=== PATIENT | female | born 1950 | race Caucasian/White ===

== ENCOUNTER → 2016-07-16 | Outpatient (CLI) | payer OTHER ==
[~2016-07-16] MED LIST: ADVIN25050 INH; ALBUAER INH; ATOR-14 PO; CLON1TAB3 PO; FLUT50SP14 NAE; FRRS300 PO; LCTX PO; OMEP40CA36 PO; OXYC-57 PO; RIVA1TAB PO; SERT100T PO
--- NOTE | 2016-07-16 14:43 | DIAGNOSTIC IMAGING REPORT ---
TWO VIEW CHEST CLINICAL HISTORY: COPD. FINDINGS: PA and lateral chest radiographs are compared to study dated 10/19/2011 and correlated with chest CT dated 10/17/2011. The cardiomediastinal silhouette is unremarkable. There is atherosclerotic calcification of the thoracic aorta. Emphysema and chronic interstitial thickening are similar to previous. There is asymmetric density at the right apex. No pleural effusion or pneumothorax is identified. The skeletal structures are osteopenic. The bony thorax appears intact. IMPRESSION: 1. Emphysema. 2. There is an asymmetric right apical opacity. Although this could represent pneumonia or scarring the location and appearance are not typical. Underlying mass lesion is not excluded. Follow-up with a chest CT is recommended for further assessment. Electronically signed by: Blake Crook M.D. 07/16/2016 2:42 PM Dictated Date/Time: 07/16/2016 2:40 PM
== END | disposition home or self-care (01) ==
LOC: C.RAD1850 14:31
PROVIDERS: ATTEND Internal Medicine Pulmonary Disease
DX: J44.9 Chronic obstructive pulmonary disease, unspecified (principal)

== ENCOUNTER → 2016-07-27 | Outpatient (CLI) | payer OTHER ==
[~2016-07-27] MED LIST changes: +OPTIRAY 320 IV PRN
--- NOTE | 2016-07-27 11:32 | DIAGNOSTIC IMAGING REPORT ---
CHEST CT WITH CONTRAST CT DOSE: 214.40 mGy.cm HISTORY: Abnormal chest x-ray R93.8 Abnormal chest [id number] TECHNIQUE: Multiaxial CT images of the chest were performed following the intravenous administration of contrast. COMPARISON: 10/17/2011. Chest series dated 07/16/2016 FINDINGS: Lungs currently are considerably improved in terms of aeration compared to the prior study. Interstitial changes on the prior study have essentially resolved. Progressive right and to lesser extent left apical fibrous appearing changes. A true masslike process is not appreciated. There is no evidence for any component of bony destructive change. Hilar and mediastinal regions show no significant adenopathy. Mild atherosclerotic change thoracic aorta. No evidence for aneurysm or dissection. Limited evaluation the upper abdomen shows moderate cortical thinning of the kidneys. Mild hepatic in homogeneity is present suggesting a component of fatty infiltration. IMPRESSION: 1. Increased right and to a lesser extent left apical density. 2. This is highly suggestive of a benign somewhat progressive fibrous or scar like change. 3. Neoplasm is considered unlikely given this appearance. 4. Considerable improvement in aeration of both hemithoraces compared to the prior CT study with no current evidence for focal infiltrate Electronically signed by: Holden Fine M.D. 07/27/2016 11:30 AM Dictated Date/Time: 07/27/2016 11:23 AM
== END | disposition home or self-care (01) ==
LOC: C.CTS 10:42
PROVIDERS: ATTEND Internal Medicine Pulmonary Disease
DX: R93.8 Abnormal findings on diagnostic imaging of other specified body structures (principal)

== ENCOUNTER 2017-06-02 11:15 | Inpatient (IN) | payer OTHER ==
[~2017-06-02] VITALS: Ht 154.9 cm; Wt 55.4 kg
[~2017-06-02 11:15] MED LIST changes: -OPTIRAY 320 IV PRN
[2017-06-02] MEDS ORDERED: XYLOCAINE 1%/SOD BICARB 20 ML VIAL INFIL ONE (11:57)
[2017-06-02 11:58] LABS: HEMOGLOBIN 14.3 g/dL (12.0-16.0); MEAN CELL VOLUME 90.1 fL (80-100); MEAN CORPUSCULAR HGB CONC 33.3 g/dl (32-36); MEAN PLATELET VOLUME 10.5 fL (7.4-10.4); PLATELET COUNT 176 K/uL (130-400); RED CELL DISTRIBUTION WIDTH CV 14.3 % (11.5-14.5); RED CELL DISTRIBUTION WIDTH SD 46.6 fL (36.4-46.3); WHITE BLOOD COUNT 6.95 K/uL (4.8-10.8)
--- NOTE | 2017-06-02 12:08 | DIAGNOSTIC IMAGING REPORT ---
SINGLE VIEW CHEST CLINICAL HISTORY: Atypical chest pain. Dyspnea. FINDINGS: An AP, portable, upright chest radiograph is compared to study dated 07/16/2016 and correlated with chest CT dated 07/27/2016. The cardiomediastinal silhouette is unremarkable. There is a large right-sided pneumothorax with near-complete atelectasis of the right lung. There is mild leftward shift of the mediastinum. The trachea is midline. The left lung is grossly clear. No left-sided pneumothorax is seen. The bony thorax is grossly intact. IMPRESSION: 1. Large right-sided pneumothorax with near-complete atelectasis of the right lung and leftward shift of the mediastinum. Tension pneumothorax is not excluded. 2. The left lung appears clear. Electronically signed by: Blake Crook M.D. 06/02/2017 12:07 PM Dictated Date/Time: 06/02/2017 12:06 PM
[2017-06-02 12:09] LABS: PTT PATIENT 24.5 SECONDS (21.0-31.0)
[2017-06-02 12:14] LABS: ALBUMIN 4.2 gm/dl (3.4-5.0); CALCIUM 9.3 mg/dl (8.5-10.1); CREATININE 1.5 mg/dl (0.60-1.20); POTASSIUM 3.3 mmol/L (3.5-5.1)
[2017-06-02 12:19] LABS: TOTAL PROTEIN 8.3 gm/dl (6.4-8.2)
[2017-06-02] MEDS ORDERED: MoRPHine SULFATE 4 MG/ML 1 ML CARP\\VIAL ONE (12:26)
--- NOTE | 2017-06-02 12:53 | DIAGNOSTIC IMAGING REPORT ---
CHEST ONE VIEW PORTABLE CLINICAL HISTORY: s/p chest tube PNEUMOTHORAX COMPARISON STUDY: 06/02/2017 FINDINGS: A right pleural pigtail catheter has been placed. The tip is located at the right lung apex. There is been interval reexpansion of the right lung. There is a trace residual pneumothorax the pleural separation of 3.5 mm. There are minor right basilar atelectatic changes. IMPRESSION: 1. Interval placement of a right-sided chest tube with reexpansion of the right lung 2. Trace residual pneumothorax 3. Right basilar atelectasis Electronically signed by: Gómez Bermudez M.D. 06/02/2017 12:52 PM Dictated Date/Time: 06/02/2017 12:50 PM
[2017-06-02] MEDS ORDERED: BUPR100T8 PO (13:05)
[2017-06-02] MEDS ORDERED: APR50 PO (13:05)
[2017-06-02] MEDS ORDERED: CLOR7.5T14 PO (13:05)
[2017-06-02] MEDS ORDERED: PROP10TA7 PO ×2 (13:05)
[2017-06-02] MEDS ORDERED: TPM100 PO (13:05)
[2017-06-02] MEDS ORDERED: PRMVC PV (13:05)
[2017-06-02] MEDS ORDERED: MoRPHine SULFATE 2 MG/ML CARP IV PRN (13:30)
[2017-06-02] MEDS ORDERED: ONDANSETRON INJ 2 MG/ML 2 ML VIAL IV PRN (13:30)
[2017-06-02] MEDS ORDERED: KETOROLAC TROMETHAMINE 15 MG/ML VIAL IV PRN (13:30)
--- NOTE | 2017-06-02 14:01 | EMERGENCY ROOM VISIT NOTE ---
History Report prepared by Nigel: Krystal Muniz Under the Supervision of: Dr. Noel Arnold D.O. First contact with patient: 11:33 Chief Complaint: CHEST PAIN Stated Complaint: CHEST PAIN History of Present Illness The patient is a 67 year old female who presents to the Emergency Room with complaints of chest pain beginning a couple days ago. She states she it feels like there is something "sitting on my chest". She notes some shortness of breath. She states her chest pain may be anxiety induced. The patient has a history of anxiety, pneumothorax, and bipolar disorder. The patient states she did not take any of her medication today. Source of History: patient Onset: a couple days ago Position: chest Associated Symptoms: + chest pain, + SOB Review of Systems See HPI for pertinent positives & negatives. A total of 10 systems reviewed and were otherwise negative. Past Medical & Surgical Medical Problems: (1) Anxiety (2) Bipolar disorder (3) Pneumothorax Family History Patient reports no known family medical history. Social History Smoking Status: Current Some Day Smoker Marital Status: Current/Historical Medications Scheduled Bupropion (Wellbutrin Sr), 100 MG PO HS Clorazepate Dipotassium (Tranxene-T), 7.5 MG PO TID Estrogens, Conjugated (Premarin), 0 PV UD Hydralazine HCl (Hydralazine HCl), 100 MG PO HS Propranolol (Inderal), 10 MG PO BID17 Propranolol (Inderal), 20 MG PO HS Sertraline Hcl (Zoloft), 200 MG PO QPM Topiramate (Topiramate), 100 MG PO HS Allergies Coded Allergies: Penicillins (Verified Allergy, Intermediate, RASH, 06/02/17) Cephalosporins (Verified Adverse Reaction, Intermediate, KEFLEX-HEADACHE, 06/02/17) Codeine (Verified Adverse Reaction, Intermediate, SEVERE GASTRIC DISTRESS , 06/02/17) Erythromycin (Verified Adverse Reaction, Mild, STOMACH PAIN, 06/02/17) Physical Exam Vital Signs Date Time Temp Pulse Resp B/P (MAP) Pulse Ox O2 Delivery O2 Flow Rate FiO2 06/02/17 13:46 64 16 116/74 99 Nasal Cannula 4.0 06/02/17 12:49 72 18 131/71 99 Nasal Cannula 4.0 06/02/17 12:15 85 06/02/17 11:48 92 Room Air 06/02/17 11:42 93 Room Air 06/02/17 11:42 92 Room Air 06/02/17 11:21 37.1 88 16 155/93 90 Room Air Physical Exam CONSTITUTIONAL/VITAL SIGNS: Reviewed / noted above. GENERAL: Non-toxic in appearance. INTEGUMENTARY: Warm, dry, and [place]. HEAD: Normocephalic. EYES: without scleral icterus or trauma. ENT/OROPHARYNX: clear and moist. LYMPHADENOPATHY/NECK: Is supple without lymphadenopathy or meningismus. RESPIRATORY: Lungs clear and equal. CARDIOVASCULAR: Regular rate and rhythm. GI/ABDOMEN: Soft and nontender. No organomegaly or pulsatile mass. No rebound or guarding. Normal bowel sounds. EXTREMITIES: Warm and well perfused. BACK: No CVA tenderness. NEUROLOGICAL: Intact without focal deficits. PSYCHIATRIC: normal affect. MUSCULOSKELETAL: Normally developed with good muscle tone. Medical Decision & Procedures ER Provider Diagnostic Interpretation: Radiology results as stated below per my review and radiologist interpretation: CHEST ONE VIEW PORTABLE CLINICAL HISTORY: s/p chest tube PNEUMOTHORAX FINDINGS: A right pleural pigtail catheter has been placed. The tip is located at the right lung apex. There is been interval reexpansion of the right lung. There is a trace residual pneumothorax the pleural separation of 3.5 mm. There are minor right basilar atelectatic changes. IMPRESSION: 1. Interval placement of a right-sided chest tube with reexpansion of the right lung 2. Trace residual pneumothorax 3. Right basilar atelectasis Electronically signed by: Gómez Bermudez M.D. SINGLE VIEW CHEST FINDINGS: An AP, portable, upright chest radiograph is compared to study dated 07/16/2016 and correlated with chest CT dated 07/27/2016. The cardiomediastinal silhouette is unremarkable. There is a large right-sided pneumothorax with near-complete atelectasis of the right lung. There is mild leftward shift of the mediastinum. The trachea is midline. The left lung is grossly clear. No left-sided pneumothorax is seen. The bony thorax is grossly intact. IMPRESSION: 1. Large right-sided pneumothorax with near-complete atelectasis of the right lung and leftward shift of the mediastinum. Tension pneumothorax is not excluded. 2. The left lung appears clear. Electronically signed by: Blake Vilbert, M.D. Laboratory Results 06/02/17 11:40 06/02/17 11:40 Test 06/02/17 11:40 06/02/17 11:52 Red Blood Count 4.77 M/uL (4.2-5.4) Mean Corpuscular Volume 90.1 fL (80-100) Mean Corpuscular Hemoglobin 30.0 pg (25-34) Mean Corpuscular Hemoglobin Concent 33.3 g/dl (32-36) RDW Standard Deviation 46.6 fL (36.4-46.3) RDW Coefficient of Variation 14.3 % (11.5-14.5) Mean Platelet Volume 10.5 fL (7.4-10.4) Prothrombin Time 10.1 SECONDS (9.0-12.0) Prothromb Time International Ratio 1.0 (0.9-1.1) Activated Partial Thromboplast Time 24.5 SECONDS (21.0-31.0) Partial Thromboplastin Ratio 0.9 Anion Gap 7.0 mmol/L (3-11) Est Creatinine Clear Calc Drug Dose 28.2 ml/min Estimated GFR () 41.9 Estimated GFR (Non- 36.2 BUN/Creatinine Ratio 20.3 (10-20) Calcium Level 9.3 mg/dl (8.5-10.1) Total Bilirubin 0.3 mg/dl (0.2-1) Aspartate Amino Transf (AST/SGOT) 12 U/L (15-37) Alanine Aminotransferase (ALT/SGPT) 23 U/L (12-78) Alkaline Phosphatase 70 U/L (45-117) Total Creatine Kinase 65 U/L (26-192) Creatine Kinase MB 1.0 ng/ml (0.5-3.6) Creatine Kinase MB Ratio 1.5 (0-3.0) Total Protein 8.3 gm/dl (6.4-8.2) Albumin 4.2 gm/dl (3.4-5.0) Globulin 4.1 gm/dl (2.5-4.0) Albumin/Globulin Ratio 1.0 (0.9-2) Bedside Troponin I < 0.030 ng/ml (0-0.045) Laboratory results as stated above per my review. Medications Administered Medications (Trade) Dose Ordered Sig/Eva Route Start Time Stop Time Status Last Admin Dose Admin Morphine Sulfate (MoRPHine SULFATE INJ) 4 mg STK-MED ONCE .ROUTE 06/02/17 12:26 06/02/17 12:27 DC 06/02/17 12:34 4 MG Procedure Procedure: Right-sided chest tube Reason: Right-sided pneumothorax The patient was sitting during the procedure. The right lateral chest wall was cleaned with Betadine. Using aseptic technique, the right chest area was anesthetized with 1% lidocaine. Using a pigtail catheter and Seldinger technique, the catheter was introduced into the right thorax without difficulty. He was connected to suction. The patient tolerated the procedure well. Chest x-ray following placement reveals near complete resolution of the pneumothorax. The pigtail catheter was sutured in place and covered with a sterile dressing. The chest tube was taped to the patient's body and secured to the bed with hemostat. ECG Indication: chest pain Rate (beats per minute): 73 Rhythm: normal sinus Findings: no ectopy, other (no acute injury ) Change: EKG interpreted by me. ED Course 1136: Previous medical records were reviewed. The patient was evaluated in room A2. A complete history and physical examination was performed. 1157: Ordered Lidocaine HCl 20 ml INFIL. 1211: A chest tube was put in place at bedside. 1226: Ordered Morphine Sulfate 4 mg .ROUTE. 1257: Discussed the patient's case with Dr. Barrow[place]. The patient will be evaluated for further treatment and disposition. Medical Decision the differential was considered includes acute myocardial infarction, acute coronary syndrome, myocarditis, pericarditis, pericardial effusions /tamponade, esophageal perforation, thoracic aortic dissection, pulmonary embolism, pneumonia, pneumothorax, pancreatitis, shingles, acute cholecystitis, perforated abdominal viscus. This is a 67-year-old female who presents to the ED with a chief complaint of chest pain. The patient appears quite anxious when she initially arrived. He does have a history of anxiety. She's had a hard time breathing for the past couple of days. Her physical exam reveals diminished breath sounds on the right. Chest x-ray reveals complete pneumothorax on the right. Twelve-lead EKG reveals a normal sinus rhythm without ectopy or acute ischemic changes. CBC is unremarkable, chemistry panel was unremarkable. Troponin was negative. Chest tube was placed as above. The patient was treated with some IV morphine for pain. I spoke with Dr. Barrow, who saw the patient ED for admission. Medication Reconcilliation Current Medication List: was personally reviewed by me Blood Pressure Screening Patient's blood pressure: Normal blood pressure Consults Time Called: 1252 Consulting Physician: Dr. Coker Thoracic Surgeon Returned Call: 1257 Discussed the patient's case with Dr. Coker Thoracic Surgeon. The patient will be evaluated for further treatment and disposition. Impression Primary Impression: Spontaneous pneumothorax Critical Care I have personally spent greater than 30 minutes of critical care time in the direct management of this patient. This includes bedside care, interpretation of diagnostic studies, and testing, discussion with consultants, patient, and family members, and other required patient management activities. This 30 minutes is in excess of all separately billable procedures. Scribe Attestation The scribe's documentation has been prepared under my direction and personally reviewed by me in its entirety. I confirm that the note above accurately reflects all work, treatment, procedures, and medical decision making performed by me. Departure Information Dispostion Being Evaluated By Hospitalist Referrals Macy Mccauley DO (PCP) Patient Instructions My [facility]
[2017-06-02] MEDS ORDERED: KETOROLAC TROMETHAMINE 30 MG/ML VIAL ONE (14:33)
--- NOTE | 2017-06-02 15:40 | HISTORY & PHYSICAL EXAMINATION ---
DATE OF ADMISSION: 06/02/2017 PREOPERATIVE DIAGNOSES: 1. Spontaneous right pneumothorax. 2. History of spontaneous left pneumothorax treated with a chest tube 3 years ago. 3. Long history of cigarette smoking (quit 8 months ago). HISTORY OF PRESENT ILLNESS: This is a very nice 67-year-old female, who has a history of cigarette smoking starting at about age 17 and continuing to age 66. She quit 8 months ago. About 3 years ago, she developed signs and symptoms consistent with a spontaneous pneumothorax and underwent an evaluation at [facility] and was found to have a left pneumothorax and then was treated with a chest tube. This resolved and she presents back today and now has pain and shortness of breath for the last 24 to 36 and the right chest was found to have almost a complete pneumothorax. A small pigtail catheter was placed with complete reexpansion of the lung. I was asked to evaluate her from a Thoracic Surgery standpoint. PAST MEDICAL HISTORY: 1. Bilateral spontaneous pneumothoraces. 2. Long history of cigarette smoking (quit 8 months ago). 3. Anxiety. 4. Bipolar disorder. 5. Hypertension. PAST SURGICAL HISTORY: 1. Appendectomy. 2. Cholecystectomy. 3. 3, para 2, abortus 1 (elective). MEDICATIONS: 1. Topiramate. 2. Wellbutrin. 3. Zoloft. 4. Inderal. 5. Hydralazine. 6. Premarin. 7. Tranxene. ALLERGIES: PENICILLIN CAUSES A RASH WHILE CEPHALOSPORINS CAUSE A HEADACHE. CODEINE CAUSES NAUSEA AND VOMITING, AZITHROMYCIN CAUSES ABDOMINAL PAIN. SOCIAL HISTORY: The patient lives with her ; however, there have been some marital discord and he has recently moved out. The patient has been smoking cigarettes for almost 40 years at about a pack and a half a day, but quit 8 months ago. She does not use alcohol. 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 She currently lives at home with her 2 dogs. FAMILY MEDICAL HISTORY: The patient's father from mesothelioma at age 60. He had been a [place] . Mother at age 80 after "falling." She has a brother who from lung cancer at age 60. She has 2 other sisters who are healthy. Her 2 children are healthy. She has 5 grandchildren, they are healthy; however, one of her grandchildren did have a hepatic tumor resected at age 1. She has done well from that regard and is Kindergarten graduate from high school. REVIEW OF SYSTEMS: The patient denies any weight loss. She denies chest pain or palpitations. She states that she feels that she would be able to walk a mile. She can easily climb 1-2 flights of stairs without difficulty. She underwent pulmonary function testing in [address] Lockwood and was found to be essentially normal. She denies productive cough. She has had no palpitations or chest pain. She had no fevers or chills. She denies any GI or symptoms. She has had no visual or auditory changes. She denies any neurologic complaints such as amaurosis fugax or transient ischemic attacks. She has had no seizures. She has had no lower extremity edema or claudication. PHYSICAL EXAMINATION: GENERAL: This is a smallish female, who stands 5 feet 1 inches tall and weighs 122 pounds. HEENT: Extraocular movements are intact. Pupils are equal, round, and reactive. Sclerae are pale, but anicteric. She has no nasolabial flattening. She has had good amount of dental work done, but she has her own teeth top and bottom with no oral mucosal lesions. Her tongue is midline. NECK: Supple. She has no supraclavicular or cervical lymphadenopathy or neck vein distention. LUNGS: Perfectly clear. HEART: She has a regular rate and rhythm of her heart. She has no rub or murmur. ABDOMEN: Protuberant, soft, nontender. There is no evidence of ascites or hepatosplenomegaly. EXTREMITIES: Upon evaluation of lower extremities, she has bilateral posterior tibialis pulses which are palpable. She has no peripheral edema. No joint effusions. NEUROLOGIC: Completely Intact. 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 Her lower lobe and middle lobe architectures surprisingly preserved. Chest x-ray shows almost complete collapse of the right lung with reexpansion with the pigtail catheter. She does not have an air leak. ASSESSMENT AND PLAN: Bilateral spontaneous pneumothoraces. Given the fact that she has bleb in the apex, I believe that offering her an apical bleb resection in this patient would be a good option. I discussed this with the patient's son, Mango, who is one of the CAT scan technicians. He understands. We will get her on the schedule for tomorrow. We discussed this case in detail and we will do a right thoracoscopic approach with apical bleb resection and probable limited pleurectomy of the upper chest cavity.
[2017-06-02 15:48] VITALS: BP 122/71; PULSE 75; TEMP 36.9; O2SAT 98; Ht 154.9 cm; Wt 55.4 kg
[2017-06-02 15:49] VITALS: BP 122/71; PULSE 75; TEMP 36.9; O2SAT 98
[2017-06-02] MEDS: PROPRANOLOL HCL 10 MG TAB PO SCH (17:00)
--- NOTE | 2017-06-02 17:01 | Medical Consult ---
Consultation Date of Consultation: Jun 02, 2017. Attending Physician: Cristobal Barrow MD Reason for Consultation: Medical management History of Present Illness 67 y/o F who was admitted earlier today by Dr. Barrow for a spontaneous pneumothorax. A chest tube was placed and she is feeling much improved. She is on O2, which she does not use at home. No longer SOB. Her chest pain that she had [employer] is more of a pressure now. Her family brought her chips and soda and she ate this without issue. Pt denies fever, abd pain, n/v/c/d, LE pain or swelling. Pt did not know her medications coming in. I reviewed them with her and she made the following changes: Wellbutrin is AM and not HS Zoloft is AM/HS, not HS only Past Medical/Surgical History Medical Problems: (1) Spontaneous pneumothorax Status: Acute Anxiety Bipolar HTN Hx of L sided spontaneous pneumothorax Family History Family history was reviewed; no changes noted. Social History Smoking Status: Former Smoker (quit x8 months) Alcohol Use: none Drug Use: none Marital Status: Allergies Coded Allergies: Penicillins (Verified Allergy, Intermediate, RASH, 06/02/17) Cephalosporins (Verified Adverse Reaction, Intermediate, KEFLEX-HEADACHE, 06/02/17) Codeine (Verified Adverse Reaction, Intermediate, SEVERE GASTRIC DISTRESS , 06/02/17) Erythromycin (Verified Adverse Reaction, Mild, STOMACH PAIN, 06/02/17) Current Inpatient Medications Current Inpatient Medications Medications (Trade) Dose Ordered Sig/Eva Route Start Time Stop Time Status Last Admin Dose Admin Bupropion HCl (Wellbutrin-Sr Tab) 100 mg HS PO 06/02/17 21:00 07/02/17 20:59 Clorazepate Dipotassium (Tranxene-T Tab) 7.5 mg TID PO 06/02/17 14:00 07/02/17 13:59 Hydralazine HCl (Apresoline Tab) 100 mg HS PO 06/02/17 21:00 07/02/17 20:59 Propranolol HCl (Inderal Tab) 10 mg BID17 PO 06/02/17 17:00 07/02/17 16:59 Propranolol HCl (Inderal Tab) 20 mg HS PO 06/02/17 21:00 07/02/17 20:59 Sertraline HCl (Zoloft Tab) 200 mg QPM PO 06/02/17 21:00 07/02/17 20:59 Topiramate (Topamax Tab) 100 mg HS PO 06/02/17 21:00 07/02/17 20:59 Acetaminophen (Tylenol Tab) 650 mg Q6H PO 06/02/17 18:00 07/02/17 17:59 Ondansetron HCl (Zofran Inj) 4 mg Q6H PRN IV 06/02/17 13:30 07/02/17 13:29 Ketorolac Tromethamine (Toradol Inj) 15 mg Q6H PRN IV 06/02/17 13:30 06/07/17 13:29 Morphine Sulfate (MoRPHine SULFATE INJ) 2 mg Q3H PRN IV 06/02/17 13:30 06/16/17 13:29 Review of Systems Pertinent positives and negatives reviewed in HPI--all others negative Physical Exam Date Time Temp Pulse Resp B/P (MAP) Pulse Ox O2 Delivery O2 Flow Rate FiO2 06/02/17 15:49 36.9 75 16 122/71 (88) 98 Nasal Cannula 4.0 06/02/17 15:48 36.9 75 16 122/71 98 Nasal Cannula 4.0 06/02/17 14:25 66 18 126/73 98 Nasal Cannula 4.0 06/02/17 13:46 64 16 116/74 99 Nasal Cannula 4.0 06/02/17 12:49 72 18 131/71 99 Nasal Cannula 4.0 06/02/17 12:15 85 06/02/17 11:48 92 Room Air 06/02/17 11:42 93 Room Air 06/02/17 11:42 92 Room Air 06/02/17 11:21 37.1 88 16 155/93 90 Room Air General Appearance: no apparent distress, + thin Head: normocephalic, atraumatic Eyes: normal inspection, sclerae normal Respiratory/Chest: no respiratory distress, + decreased breath sounds, + pertinent finding (no wheezing noted) Cardiovascular: regular rate, rhythm, no edema, normal peripheral pulses Abdomen/GI: non tender, soft Extremities/Musculoskelatal: no calf tenderness, no pedal edema Neurologic/Psych: alert, oriented x 3 Laboratory Results Last 24 Hours Test 06/02/17 11:40 06/02/17 11:52 White Blood Count 6.95 K/uL Red Blood Count 4.77 M/uL Hemoglobin 14.3 g/dL Hematocrit 43.0 % Mean Corpuscular Volume 90.1 fL Mean Corpuscular Hemoglobin 30.0 pg Mean Corpuscular Hemoglobin Concent 33.3 g/dl RDW Standard Deviation 46.6 fL RDW Coefficient of Variation 14.3 % Platelet Count 176 K/uL Mean Platelet Volume 10.5 fL Prothrombin Time 10.1 SECONDS Prothromb Time International Ratio 1.0 Activated Partial Thromboplast Time 24.5 SECONDS Partial Thromboplastin Ratio 0.9 Sodium Level 142 mmol/L Potassium Level 3.3 mmol/L Chloride Level 112 mmol/L Carbon Dioxide Level 23 mmol/L Anion Gap 7.0 mmol/L Blood Urea Nitrogen 30 mg/dl Creatinine 1.50 mg/dl Est Creatinine Clear Calc Drug Dose 28.2 ml/min Estimated GFR () 41.9 Estimated GFR (Non- 36.2 BUN/Creatinine Ratio 20.3 Random Glucose 114 mg/dl Calcium Level 9.3 mg/dl Total Bilirubin 0.3 mg/dl Aspartate Amino Transf (AST/SGOT) 12 U/L Alanine Aminotransferase (ALT/SGPT) 23 U/L Alkaline Phosphatase 70 U/L Total Creatine Kinase 65 U/L Creatine Kinase MB 1.0 ng/ml Creatine Kinase MB Ratio 1.5 Total Protein 8.3 gm/dl Albumin 4.2 gm/dl Globulin 4.1 gm/dl Albumin/Globulin Ratio 1.0 Bedside Troponin I < 0.030 ng/ml Assessment & Plan 67 y/o F who was admitted on 06/02 for R sided spontaneous pneumothorax R sided spontaneous pneumothorax: sx improved s/p chest tube Planning for OR tomorrow High flow O2 CXR shows improved aeration s/p CT Anxiety/bipolar: reviewed medications with pt and changes made Pt did not know her medications coming in. I reviewed them with her and she made the following changes, which I modified in the orders: Wellbutrin is AM and not HS Zoloft is AM/HS, not HS only Given her current respiratory sx, there are two medications that could be an issue: Clorazepate can cause respiratory depression, however there can be withdrawal sx if sudden d/c Propranolol can cause bronchospasm, however there can be ventricular arrhythmia if sudden d/c Given pt's extensive psych hx and how improved she is feeling s/p CT, I think it will be prudent to continue these medications and monitor her respiratory status closely.
[2017-06-02] MEDS: CLORAZEPATE DIPOTASSIUM 3.75 MG TAB PO SCH ×2 (17:22→20:45)
[2017-06-02] MEDS: ACETAMINOPHEN 325 MG TAB PO SCH ×2 (18:00→23:43)
[2017-06-02 19:34] VITALS: BP 104/57; PULSE 57; TEMP 36.9; O2SAT 98
[2017-06-02] MEDS: PROPRANOLOL HCL 20 MG TAB PO SCH (20:43)
[2017-06-02] MEDS: TOPIRAMATE 100 MG TAB PO SCH (20:44)
[2017-06-02] MEDS ORDERED: BuPROPion SR 100 MG TABCR PO SCH (21:00)
[2017-06-02] MEDS ORDERED: SERTRALINE HCL 100 MG TAB PO SCH ×2 (21:00)
[2017-06-02 21:05] VITALS: O2SAT 99
[2017-06-02 23:20] VITALS: BP 114/72; PULSE 55; TEMP 36.6; O2SAT 100
[2017-06-03] VITALS (12 sets, daily range): BP systolic 95–119; BP diastolic 48–70; PULSE 50–60; TEMP 36.3–36.9; O2SAT 93–97
[2017-06-03] MEDS ORDERED: hydrOXYzine HCL 25 MG TAB PO ONE
[2017-06-03] MEDS: ACETAMINOPHEN 325 MG TAB PO SCH ×3 (05:33→18:38)
[2017-06-03] MEDS ORDERED: SODIUM CHLORIDE 0.9% 1000ML 1,000 ML IV STA (06:01)
--- NOTE | 2017-06-03 06:07 | Progress Note ---
Progress Note Date of Service Jun 03, 2017. Progress Note Called as patient voided only 125cc in last 8 hours and bladder scan showed 0ml Patient NPO for thoracoscopic apical bleb resection today Labs, meds and imaging reviewed. No evidence of CHF. Creatinine 1.5mL, significantly elevated from baseline of 1.0. Confirmed with patient and son, no previous history of CHF or renal issues. Patient complaining of dry mouth. Ordered NSS bolus at 500cc/hr, followed by mIVF NSS @125ml, while NPO. Check BMP now. If elevated, should recheck in afternoon once better hydrated. Resident Tracking Resident Involvement: Resident Care Provided Care Provided: Adult Hospital Medicine
[2017-06-03 07:24] LABS: CALCIUM 9.1 mg/dl (8.5-10.1); CREATININE 1.89 mg/dl (0.60-1.20); POTASSIUM 3.8 mmol/L (3.5-5.1)
--- NOTE | 2017-06-03 07:50 | Clinical Documentation Query ---
RENAE Orr : CLINICAL DOCUMENTATION QUERY Patient is a 67 year old female admitted for evaluation and treatment of chest pain and SOB, subsequently determined to have a spontaneous right sided pneumothorax. Admission BUN and creatinine were 30 mg/dl and 1.50 mg/dl. This a.m. (06/03), repeat values are 42 mg/dl and 1.89 mg/dl. Estimated GFR is 27 ml/min. There is no documented history of CKD. Please clarify as clinically appropriate. Thank you. In your clinical opinion is this patient being managed for: ( ) Acute kidney failure ( ) Not Agree ( ) Other explanation of clinical findings (Please Explain) ( ) Unable to determine (Please Define) ( ) Need to Discuss [place] [facility] [place] [facility] pt and they will be resuming care. The medical record reflects the following clinical findings, treatment, and risk factors. Clinical Indicators: As above Treatment: IVF, serial chemistries Risk Factors: Toradol, NPO status Please clarify and document your clinical opinion in the progress notes and discharge summary. Terms such as "probable", "suspected", "likely", "questionable", "possible", or "still to be ruled out" are acceptable. IF IN AGREEMENT, YOU MUST DOCUMENT ABOVE DIAGNOSTIC STATEMENT IN DAILY PROGRESS NOTES AND DISCHARGE SUMMARY. This document is not part of the patient's record. Thank You, Fox Mckenzie, ALDO [id number]
[2017-06-03] MEDS ORDERED: SODIUM CHLORIDE 0.9% 1000ML 1,000 ML IV SCH (08:00)
[2017-06-03] MEDS ORDERED: HYDR-3126 PO (08:43)
[2017-06-03] MEDS: PROPRANOLOL HCL 10 MG TAB PO SCH ×2 (08:43→17:00)
[2017-06-03] MEDS: CLORAZEPATE DIPOTASSIUM 3.75 MG TAB PO SCH ×3 (08:44→20:33)
[2017-06-03] MEDS: SERTRALINE HCL 100 MG TAB PO SCH ×2 (08:45→20:30)
[2017-06-03] MEDS: BuPROPion SR 100 MG TABCR PO SCH (08:45)
--- NOTE | 2017-06-03 10:12 | Progress Note ---
Medicine Progress Note Date & Time of Visit: Jun 03, 2017 at 10:07. (Shaneka Vazquez, P.A.-C.) Subjective Patient seen and examined. Resting comfortably in bed. States that she feels much better s/p chest tube placement yesterday. Denies any fever, chills, lightheadedness, chest pain, SOB, abdominal pain, nausea or vomiting. Plan is for OR today for R thoracoscopic apical bled resection by primary team. (Shaneka Vazquez, P.A.-C.) Objective Last 8 Hrs Date Time Temp Pulse Resp B/P (MAP) Pulse Ox O2 Delivery O2 Flow Rate FiO2 06/03/17 09:06 97 Room Air 06/03/17 07:55 36.6 56 14 110/56 (74) 97 Room Air 06/03/17 07:45 Room Air Physical Exam: General Appearance: WD/WN, no apparent distress. Resting comfortably. Head: normocephalic, atraumatic Eyes: normal inspection, PERRL, EOMI ENT: hearing grossly normal, pharynx normal Neck: supple, no JVD, no adenopathy Respiratory/Chest: lungs clear to auscultation. Moving air well bilaterally. No wheezes, rales or rhonci. No respiratory distress or accessory muscle use Cardiovascular: regular rate, rhythm, no murmur, normal peripheral pulses Abdomen/GI: normal bowel sounds, soft, non-tender to palpation Extremities/Musculoskelatal: normal inspection, no calf tenderness, normal capillary refill, no pedal edema Neurologic/Psych: alert, normal mood/affect, oriented x 3 Skin: normal color, warm/dry Laboratory Results: Last 24 Hours Test 06/02/17 11:40 06/02/17 11:52 06/03/17 06:03 White Blood Count 6.95 K/uL Red Blood Count 4.77 M/uL Hemoglobin 14.3 g/dL Hematocrit 43.0 % Mean Corpuscular Volume 90.1 fL Mean Corpuscular Hemoglobin 30.0 pg Mean Corpuscular Hemoglobin Concent 33.3 g/dl RDW Standard Deviation 46.6 fL RDW Coefficient of Variation 14.3 % Platelet Count 176 K/uL Mean Platelet Volume 10.5 fL Prothrombin Time 10.1 SECONDS Prothromb Time International Ratio 1.0 Activated Partial Thromboplast Time 24.5 SECONDS Partial Thromboplastin Ratio 0.9 Sodium Level 142 mmol/L 141 mmol/L Potassium Level 3.3 mmol/L 3.8 mmol/L Chloride Level 112 mmol/L 112 mmol/L Carbon Dioxide Level 23 mmol/L 24 mmol/L Anion Gap 7.0 mmol/L 5.0 mmol/L Blood Urea Nitrogen 30 mg/dl 42 mg/dl Creatinine 1.50 mg/dl 1.89 mg/dl Est Creatinine Clear Calc Drug Dose 28.2 ml/min 22.4 ml/min Estimated GFR () 41.9 31.7 Estimated GFR (Non- 36.2 27.4 BUN/Creatinine Ratio 20.3 22.0 Random Glucose 114 mg/dl 116 mg/dl Calcium Level 9.3 mg/dl 9.1 mg/dl Total Bilirubin 0.3 mg/dl Aspartate Amino Transf (AST/SGOT) 12 U/L Alanine Aminotransferase (ALT/SGPT) 23 U/L Alkaline Phosphatase 70 U/L Total Creatine Kinase 65 U/L Creatine Kinase MB 1.0 ng/ml Creatine Kinase MB Ratio 1.5 Total Protein 8.3 gm/dl Albumin 4.2 gm/dl Globulin 4.1 gm/dl Albumin/Globulin Ratio 1.0 Bedside Troponin I < 0.030 ng/ml (Shaneka Vazquez ., P.A.-C.) Assessment & Plan This is a 67yo F with a PMH of anxiety, bipolar disorder and h/o L sided spontaneous pneumothorax with presents with large R sided spontaneous pneumothorax s/p chest tube placement. R sided spontaneous pneumothorax: -Planning for OR today for R thoracoscopic apical bleb resection -CXR shows improved aeration s/p CT -Pain mgmt, VTE ppx per primary -High flow O2 -Keep NPO HERLINDA: -Cr of 1.5 on admission (baseline ~1). Increased to 1.89 today -Increased IVFs while NPO -Recommend holding Toradol in setting of HERLINDA -Cont fluid resuscitation -Monitor BMP Anxiety/bipolar disorder: -Following medication changes made yesterday: Wellbutrin in AM only, Zoloft AM/ PM -There is risk for respiratory depression with clorazepate and bronchospasm with propranolol, but due to patient's significant psych history, plan to continue these medications as scheduled -Monitor respiratory status closely -Denies any SOB s/p chest tube placement DVT Ppx: SCDs per primary Code status: FULL PCP: Parisa Dispo: Per primary Patient seen in collaboration with Dr. Loja. Please see addendum. Current Inpatient Medications: Current Inpatient Medications Medications (Trade) Dose Ordered Sig/Eva Route Start Time Stop Time Status Last Admin Dose Admin Clorazepate Dipotassium (Tranxene-T Tab) 7.5 mg TID PO 06/02/17 14:00 07/02/17 13:59 06/03/17 08:44 7.5 MG Propranolol HCl (Inderal Tab) 10 mg BID17 PO 06/02/17 17:00 07/02/17 16:59 Propranolol HCl (Inderal Tab) 20 mg HS PO 06/02/17 21:00 07/02/17 20:59 Topiramate (Topamax Tab) 100 mg HS PO 06/02/17 21:00 07/02/17 20:59 06/02/17 20:44 100 MG Acetaminophen (Tylenol Tab) 650 mg Q6H PO 06/02/17 18:00 07/02/17 17:59 06/03/17 05:33 650 MG Ondansetron HCl (Zofran Inj) 4 mg Q6H PRN IV 06/02/17 13:30 07/02/17 13:29 Ketorolac Tromethamine (Toradol Inj) 15 mg Q6H PRN IV 06/02/17 13:30 06/07/17 13:29 Morphine Sulfate (MoRPHine SULFATE INJ) 2 mg Q3H PRN IV 06/02/17 13:30 06/16/17 13:29 06/02/17 17:19 2 MG Bupropion HCl (Wellbutrin-Sr Tab) 100 mg DAILY PO 06/03/17 09:00 07/03/17 08:59 06/03/17 08:45 100 MG Sodium Chloride 1,000 ml @ 125 mls/hr Q8H IV 06/03/17 08:00 07/03/17 07:59 06/03/17 08:27 125 MLS/HR Hydroxyzine HCl (Vistaril Tab) 50 mg HS PO 06/03/17 21:00 07/03/17 20:59 Sertraline HCl (Zoloft Tab) 100 mg BID PO 06/03/17 09:00 07/03/17 08:59 06/03/17 08:45 100 MG (Shaneka Vazquez ., P.A.-C.) Attending Addendum Pt was seen and examined. Agreed with Shaneka ROMERO assessment and plan. S/p day 0 Right thoracoscopic apical bleb resection performed by Dr. Barrow. Creatine elevated to 1.8 today. Receieved IVF. Check BMP tomorrow. avoid nephrotoxic agents. Check CBC in am. Pain control. Please refer to Shaneka ROMERO documentation for other problems. MD [facility] (Leeanne Loja M.D.)
--- NOTE | 2017-06-03 12:48 | Clinical Documentation Query ---
YUMIKO DELA CRUZ : CLINICAL DOCUMENTATION QUERY Patient is a 67 year old female admitted for evaluation and treatment of chest pain and SOB, subsequently determined to have a spontaneous right sided pneumothorax. Admission BUN and creatinine were 30 mg/dl and 1.50 mg/dl. This a.m. (06/03), repeat values are 42 mg/dl and 1.89 mg/dl. Estimated GFR is 27 ml/min. There is no documented history of CKD. Please clarify as clinically appropriate. Thank you. In your clinical opinion is this patient being managed for: (x ) Acute kidney failure ( ) Not Agree ( ) Other explanation of clinical findings (Please Explain) ( ) Unable to determine (Please Define) ( ) Need to Discuss The medical record reflects the following clinical findings, treatment, and risk factors. Clinical Indicators: As above Treatment: IVF, serial chemistries Risk Factors: Toradol, NPO status Please clarify and document your clinical opinion in the progress notes and discharge summary. Terms such as "probable", "suspected", "likely", "questionable", "possible", or "still to be ruled out" are acceptable. IF IN AGREEMENT, YOU MUST DOCUMENT ABOVE DIAGNOSTIC STATEMENT IN DAILY PROGRESS NOTES AND DISCHARGE SUMMARY. This document is not part of the patient's record. Thank You, Fox Mckenzie, ALDO [id number]
--- NOTE | 2017-06-03 13:19 | History & Physical Bridge Note ---
H&P Re-Evaluation Bridge Note: I have examined the patient, reviewed the History & Physical and in the interval since the performance of the History & Physical I have noted the following changes of clinical significance: No changes noted
[2017-06-03] MEDS ORDERED: FENTANYL CITRATE INJ 50 MCG/1 ML 2 ML VIAL ONE ×2 (13:25→15:38)
[2017-06-03] MEDS ORDERED: LIDOCAINE HCL 2% 2 ML VIAL (20MG/ML) ONE (13:25)
[2017-06-03] MEDS ORDERED: ROCURONIUM BROMIDE 10 MG/ML 5 ML VIAL IV ONE (13:25)
[2017-06-03] MEDS ORDERED: MIDAZOLAM HCL 1 MG/ML 2ML VIAL ONE (13:25)
[2017-06-03] MEDS ORDERED: DEXAMETHASONE SOD INJ 4 MG/ML VIAL ONE (13:25)
[2017-06-03] MEDS ORDERED: PROPOFOL IV EMULSION 10 MG/ML 20 ML VIAL IV ONE (13:25)
[2017-06-03] MEDS ORDERED: ONDANSETRON INJ 2 MG/ML 2 ML VIAL ONE (13:25)
[2017-06-03] MEDS ORDERED: SODIUM CHLORIDE 0.9% PF 50 ML VIAL ONE (13:30)
[2017-06-03] MEDS ORDERED: BUPIVACAINE 0.5 % 5 MG/1 ML MPF 30ML VIAL ONE (13:31)
[2017-06-03] MEDS ORDERED: BUPIVACAINE LIPOSOME 1/3% 266 MG/20 ML VIAL INFIL ONE (13:31)
[2017-06-03] MEDS ORDERED: NURSING VERBAL MED ORDER STA (13:32)
[2017-06-03] MEDS ORDERED: CLINDAMYCIN 600 MG/54 ML D5W IV ONE (13:34)
[2017-06-03] MEDS ORDERED: ONDANSETRON INJ 2 MG/ML 2 ML VIAL IV PRN (13:45)
[2017-06-03] MEDS ORDERED: FLUMAZENIL 0.1 MG/1 ML 10 ML VIAL IV PRN (13:45)
[2017-06-03] MEDS ORDERED: NALOXONE HCL 0.4 MG/1 ML VIAL/CARP IV PRN (13:45)
[2017-06-03] MEDS ORDERED: EpHEDrine SULFATE INJ 50 MG/ML AMP IV PRN (13:45)
[2017-06-03] MEDS ORDERED: MoRPHine SULFATE 10 MG/ML CARP/VIAL IV PRN (13:45)
[2017-06-03] MEDS ORDERED: HYDROmorphone INJ 1 MG/ML SYR IV PRN (13:45)
[2017-06-03] MEDS ORDERED: MEPERIDINE HCL 25 MG/ML CARP IV PRN (13:45)
[2017-06-03] MEDS ORDERED: ATROPINE SULFATE 0.1 MG/ML 5ML SYR IV PRN (13:45)
[2017-06-03] MEDS ORDERED: PHENYLEPHRINE 100MCG/ML 5ML SYR IV PRN (13:45)
[2017-06-03] MEDS ORDERED: LABETALOL HCL IV 5 MG/ML 20ML IV PRN (13:45)
--- NOTE | 2017-06-03 14:50 | [facility] Post Operative Brief Note ---
Immediate Operative Summary Operative Date Jun 03, 2017. Pre-Operative Diagnosis Right Recurrent Spontaneous Pnuemothorax Post-Operative Diagnosis Same as preoperative Procedure(s) Performed Right Video-Assisted Thoracoscopy with Right Bleb Stapling and Partial Pleurectomy Surgeon Dr. Barrow Metal Wire Coating Operator Surgeon(s) Wisam Solo PA-C Estimated Blood Loss 5ml Findings Consistent with Post-Op Diagnosis Specimens FRESH: A.) Right Upper Lobe B.) Parietal Pleura Tissue CULTURE: 1.) Right Upper Lobe Anesthesia Type General
--- NOTE | 2017-06-03 15:31 | DIAGNOSTIC IMAGING REPORT ---
CHEST ONE VIEW PORTABLE CLINICAL HISTORY: bleb stapling COMPARISON STUDY: Chest radiograph June 02, 2017 at 12:39 PM. FINDINGS: A right apical chest tube is in place. There is a trace right apical pneumothorax. Postoperative finding within the right upper lung are noted. There is no evidence for pulmonary edema. Cardiomediastinal silhouette is unremarkable. IMPRESSION: Right apical chest tube in place. Trace right apical pneumothorax. Electronically signed by: Cam Padilla M.D. 06/03/2017 3:29 PM Dictated Date/Time: 06/03/2017 3:28 PM
[2017-06-03] MEDS ORDERED: NURSING VERBAL MED ORDER ONE (15:45)
[2017-06-03] MEDS ORDERED: FENTANYL CITRATE INJ 50 MCG/1 ML 2 ML VIAL IV PRN (16:00)
--- NOTE | 2017-06-03 16:21 | Anesthesiology Progress Note ---
Anesthesia Post Op Note Date & Time Jun 03, 2017 at 16:20 Vital Signs Pain Intensity: 4 Vital Signs Past 12 Hours Date Time Temp Pulse Resp B/P (MAP) Pulse Ox O2 Delivery O2 Flow Rate FiO2 218 16:14 36.3 2/2/18 16:13 55 17 99 2/2/18 16:13 55 17 2/2/18 16:11 101/53 2/2/18 16:08 52 12 99 2/2/18 16:08 52 12 2/2/18 16:06 100/50 2/2/18 16:03 49 14 99 2/2/18 16:03 47 14 2/2/18 16:02 62 22 99 2/2/18 16:02 54 22 2/2/18 16:01 109/54 2/2/18 15:57 54 15 2/2/18 15:57 63 15 99 2/2/18 15:56 100/60 2/2/18 15:52 54 12 99 2/2/18 15:52 53 12 2/2/18 15:51 118/59 2/2/18 15:48 53 17 2/2/18 15:48 53 17 98 2/2/18 15:46 117/54 2/2/18 15:43 60 14 2/2/18 15:43 60 14 98 2/2/18 15:42 59 14 98 2/2/18 15:42 59 14 2/2/18 15:41 123/48 2/2/18 15:37 57 14 100 2/2/18 15:37 57 14 2/2/18 15:36 136/57 2/2/18 15:35 57 15 100 2/2/18 15:35 57 15 2/2/18 15:31 114/54 2/2/18 15:30 57 12 100 2/2/18 15:30 57 12 2/2/18 15:26 127/52 2/2/18 15:25 66 14 2/2/18 15:25 69 14 100 2/2/18 15:22 111/59 2/2/18 15:20 61 15 2/2/18 15:20 65 15 100 2/2/18 15:16 116/66 2/2/18 15:15 69 18 2/2/18 15:15 36.1 71 18 116/66 98 Nasal Cannula 10 06/03/17 15:15 79 18 97 06/03/17 11:44 36.8 60 14 110/70 (83) 96 Room Air 06/03/17 09:06 97 Room Air 06/03/17 07:55 36.6 56 14 110/56 (74) 97 Room Air 06/03/17 07:45 Room Air Notes Mental Status: alert / awake / arousable, participated in evaluation Pt Amnestic to Procedure: Yes Nausea / Vomiting: adequately controlled Pain: adequately controlled Airway Patency, RR, SpO2: stable & adequate BP & HR: stable & adequate Hydration State: stable & adequate Anesthetic Complications: no major complications apparent
--- NOTE | 2017-06-03 17:19 | OPERATIVE REPORT ---
DATE OF OPERATION: 06/03/2017 PREOPERATIVE DIAGNOSIS: Recurrent right spontaneous pneumothorax. POSTOPERATIVE DIAGNOSIS: Same. PROCEDURE: 1. Right thoracoscopy with apical bleb resection. 2. Partial pleurectomy, upper pleural cavity. SURGEON: Dr. Barrow. MANUFACTURING MAINTENANCE MECHANIC: KOURTNEY Ames (MrMichelle Germania was present for the entire case. He was helping manage the scope as well as first assisting. He closed the incisions at the conclusion of the case). ANESTHESIA: General anesthesia with endotracheal intubation using single lumen tube. SPECIFICS OF PROCEDURE: Marcia Mckenzie is a 67-year-old who had a pneumothorax in the past. The patient has a bipolar disorder and her history was a bit sketchy. She stated that she had a pneumothorax on the left in the past; however, her family states that it was on the right. She was treated in [facility] with a chest tube about 3 years ago. At this point, she presented with another complete pneumothorax on the right. A pigtail catheter was placed in the Emergency Room with complete resolution of the pneumothorax. She had a small air leak. A CT scan done in June of this year showed bullous disease. I felt that there was enough evidence that we would offer her a thoracoscopic bleb resection. On 06/03/2017, the patient underwent an uncomplicated right thoracostomy. I saw several bullae and I stapled across the apex removing a good-sized portion with an Endo-LILY stapler. She tolerated it well. I also did a partial pleurectomy. She was extubated in the room with no air leak. DESCRIPTION OF PROCEDURE: The patient brought to the operating room and placed in supine position. General anesthesia was induced and intubation was performed with single lumen tube. The patient was placed in the left lateral decubitus position. Right chest prepped, draped in usual sterile fashion. The pigtail catheter had been removed. The two 5 mm ports were placed, 1 in the fourth interspace anterior axillary line and the other was in the auscultatory triangle just posterior and inferior to the tip of the scapula. A 12 mm port was placed about the eighth interspace anteriorly. Upon going in, it could be seen there were no adhesions. There were fairly good fissures. The bullae were immediately noticed. I grasped these using Endo-LILY fired several times across really thickened apex. I sent some of this for culture. She really had no lymphadenopathy. I then performed the pleurectomy just at the upper pleural cavity. From about the 4th interspace, I peeled away the parietal pleura. This was delivered off the field. It should be noted that the apex was delivered off the field in an Endobag. 266 mg of Exparel mixed with 30 mL of 0.5% bupivacaine and 100 mL of normal saline used to perform a block from the 2nd to the 11th rib. I then injected all 3 incisions with the liposomal bupivacaine. 0 Vicryl was used to close the muscle layers of 12 mm incision. A 24-Bolivian chest tube had been placed through this incision and directed towards the apex. It was held in place with heavy silk suture. A 4-0 Monocryl was used to close the skin of the other 2 incisions. She tolerated it quite well without any air leak at the conclusion of the case and was extubated in the room. I attest to the content of the Intraoperative Record and any orders documented therein. Any exception s are noted below.
[2017-06-03] MEDS: TOPIRAMATE 100 MG TAB PO SCH (20:31)
[2017-06-03] MEDS: DOCUSATE SODIUM 100 MG CAP PO SCH (20:31)
[2017-06-03] MEDS: PROPRANOLOL HCL 20 MG TAB PO SCH (20:35)
[2017-06-03] MEDS: hydrOXYzine HCL 25 MG TAB PO SCH (21:44)
[2017-06-03] MEDS: METOCLOPRAMIDE HCL INJ 5 MG/ML 2 ML VIAL IV. SCH (21:44)
[2017-06-04] VITALS (7 sets, daily range): BP systolic 98–125; BP diastolic 60–73; PULSE 55–70; TEMP 36.4–36.6; O2SAT 92–98
[2017-06-04] MEDS: ACETAMINOPHEN 325 MG TAB PO SCH ×4 (00:14→18:20)
[2017-06-04] MEDS: D5W AND 1/2NSS 1,000 ML IV SCH ×2 (00:15→01:30)
[2017-06-04] MEDS: METOCLOPRAMIDE HCL INJ 5 MG/ML 2 ML VIAL IV. SCH (05:39)
--- NOTE | 2017-06-04 07:11 | SURGERY PROGRESS NOTE ---
DATE: 06/04/2017 Ms. Leung is 1 day status post thoracoscopic apical bleb resection. She has done well. She has a tiny air leak which is intermittent this morning. I am going to leave her chest tube in for at least another day. Otherwise, she has been up ambulating. We are going to stop her IVs and have her ambulate in the hallway. I am quite pleased with her. She is on room air. Her pain control was excellent. Overall I am quite pleased.
--- NOTE | 2017-06-04 07:27 | DIAGNOSTIC IMAGING REPORT ---
CHEST ONE VIEW PORTABLE CLINICAL HISTORY: bleb stapling COMPARISON STUDY: Chest radiograph June 03, 2017. FINDINGS: Right apical chest tube is in place. Postoperative findings within the right upper lung are noted. A small right apical pneumothorax has increased in size since prior exam. Superior pleural separation measures 1.2 cm. Cardiac size is normal. There is no evidence for pulmonary edema. IMPRESSION: Mild increase in size of a small right apical pneumothorax. Right chest tube in place. Electronically signed by: Cam Padilla M.D. 06/04/2017 7:25 AM Dictated Date/Time: 06/04/2017 7:24 AM
[2017-06-04] MEDS: PROPRANOLOL HCL 10 MG TAB PO SCH ×2 (09:00→17:44)
[2017-06-04] MEDS ORDERED: ENOXAPARIN 30 MG/0.3 ML SYR SQ SCH (09:00)
[2017-06-04] MEDS: DOCUSATE SODIUM 100 MG CAP PO SCH ×2 (09:18→20:41)
[2017-06-04] MEDS: BuPROPion SR 100 MG TABCR PO SCH (09:19)
[2017-06-04] MEDS: SERTRALINE HCL 100 MG TAB PO SCH ×2 (09:19→20:41)
[2017-06-04] MEDS: CLORAZEPATE DIPOTASSIUM 3.75 MG TAB PO SCH ×3 (09:21→20:41)
[2017-06-04 11:41] LABS: CALCIUM 7.8 mg/dl (8.5-10.1); CREATININE 1.33 mg/dl (0.60-1.20); POTASSIUM 3.4 mmol/L (3.5-5.1)
[2017-06-04 11:47] LABS: HEMATOCRIT 33.5 % (37-47); HEMOGLOBIN 10.7 g/dL (12.0-16.0); MEAN CORPUSCULAR HEMOGLOBIN 29.1 pg (25-34); MEAN CORPUSCULAR HGB CONC 31.9 g/dl (32-36); MEAN PLATELET VOLUME 10.7 fL (7.4-10.4); PLATELET COUNT 132 K/uL (130-400); RED CELL DISTRIBUTION WIDTH CV 14.4 % (11.5-14.5); RED CELL DISTRIBUTION WIDTH SD 48.4 fL (36.4-46.3); WHITE BLOOD COUNT 7.57 K/uL (4.8-10.8)
[2017-06-04] MEDS ORDERED: POTASSIUM CHLORIDE 20 MEQ TABCR PO ONE (13:15)
--- NOTE | 2017-06-04 16:03 | Progress Note ---
Medicine Progress Note Date & Time of Visit: Jun 04, 2017 at 15:47. Subjective Pt was seen and examined Lying in bed with no distress Pt said that she feels fine She said that pain is mild Denies any SOB, palpitation, dizziness and fever Objective Last 8 Hrs Date Time Temp Pulse Resp B/P (MAP) Pulse Ox O2 Delivery O2 Flow Rate FiO2 06/04/17 15:10 36.5 62 20 119/63 (81) 97 Room Air 06/04/17 11:03 36.5 59 16 99/64 (76) 96 Room Air Physical Exam: General- No acute distress Head- atraumatic Eyes- PERRL, EOMI ENT- oropharynx clear Neck- supple, no JVD Lungs- No wheezing, chest tube in Right chest area Heart- regular rhythm Abdomen- normal bowel sounds, soft Extremities- no calf tenderness; Neuro- alert, oriented x 3; PERRL, EOMI; no facial palsy Skin- warm & dry Laboratory Results: Last 24 Hours Test 06/04/17 10:52 White Blood Count 7.57 K/uL Red Blood Count 3.68 M/uL Hemoglobin 10.7 g/dL Hematocrit 33.5 % Mean Corpuscular Volume 91.0 fL Mean Corpuscular Hemoglobin 29.1 pg Mean Corpuscular Hemoglobin Concent 31.9 g/dl RDW Standard Deviation 48.4 fL RDW Coefficient of Variation 14.4 % Platelet Count 132 K/uL Mean Platelet Volume 10.7 fL Sodium Level 143 mmol/L Potassium Level 3.4 mmol/L Chloride Level 115 mmol/L Carbon Dioxide Level 22 mmol/L Anion Gap 6.0 mmol/L Blood Urea Nitrogen 24 mg/dl Creatinine 1.33 mg/dl Est Creatinine Clear Calc Drug Dose 31.8 ml/min Estimated GFR () 48.5 Estimated GFR (Non- 41.8 BUN/Creatinine Ratio 17.7 Random Glucose 99 mg/dl Calcium Level 7.8 mg/dl Assessment & Plan R sided spontaneous pneumothorax: S/p day 1 Right thoracoscopic apical bleb resection performed by Dr. Barrow CXR this morning showed mild increase in size of a small right apical pneumothorax. Right chest tube in place. Pain control Continue monitor H/H HERLINDA: Cr 1.5 on admission (baseline ~1). Increased to 1.8 yesterday, trending down to 1.3 Received IVF Avoid nephrotoxic agents Continue monitor BMP Anxiety/bipolar disorder: On Wellbutrin in AM only, Zoloft AM/PM There is risk for respiratory depression with clorazepate and bronchospasm with propranolol, but due to patient's significant psych history, plan to continue these medications as scheduled Monitor respiratory status closely Denies any SOB s/p chest tube placement Hypokalemia K replaced Monitor BMP DVT Ppx on SCD for now (due to chest tube placement) Code status: FULL Current Inpatient Medications: Current Inpatient Medications Medications (Trade) Dose Ordered Sig/Eva Route Start Time Stop Time Status Last Admin Dose Admin Clorazepate Dipotassium (Tranxene-T Tab) 7.5 mg TID PO 06/02/17 14:00 07/02/17 13:59 06/04/17 14:03 7.5 MG Propranolol HCl (Inderal Tab) 10 mg BID17 PO 06/02/17 17:00 07/02/17 16:59 Propranolol HCl (Inderal Tab) 20 mg HS PO 06/02/17 21:00 07/02/17 20:59 Topiramate (Topamax Tab) 100 mg HS PO 06/02/17 21:00 07/02/17 20:59 06/03/17 20:31 100 MG Acetaminophen (Tylenol Tab) 650 mg Q6H PO 06/02/17 18:00 07/02/17 17:59 06/04/17 12:15 650 MG Ondansetron HCl (Zofran Inj) 4 mg Q6H PRN IV 06/02/17 13:30 07/02/17 13:29 Ketorolac Tromethamine (Toradol Inj) 15 mg Q6H PRN IV 06/02/17 13:30 06/07/17 13:29 06/04/17 07:35 15 MG Morphine Sulfate (MoRPHine SULFATE INJ) 2 mg Q3H PRN IV 06/02/17 13:30 06/16/17 13:29 06/02/17 17:19 2 MG Bupropion HCl (Wellbutrin-Sr Tab) 100 mg DAILY PO 06/03/17 09:00 07/03/17 08:59 06/04/17 09:19 100 MG Hydroxyzine HCl (Vistaril Tab) 50 mg HS PO 06/03/17 21:00 07/03/17 20:59 06/03/17 21:44 50 MG Sertraline HCl (Zoloft Tab) 100 mg BID PO 06/03/17 09:00 07/03/17 08:59 06/04/17 09:19 100 MG Docusate Sodium (coLACE CAP) 100 mg BID PO 06/03/17 21:00 07/03/17 20:59 06/04/17 09:18 100 MG
[2017-06-04] MEDS: PROPRANOLOL HCL 20 MG TAB PO SCH (20:36)
[2017-06-04] MEDS: TOPIRAMATE 100 MG TAB PO SCH (20:41)
[2017-06-04] MEDS: hydrOXYzine HCL 25 MG TAB PO SCH (22:31)
[2017-06-05] MEDS: ACETAMINOPHEN 325 MG TAB PO SCH ×3 (05:38→12:07)
[2017-06-05 07:00] VITALS: BP 131/77; PULSE 64; TEMP 36.8; O2SAT 96
--- NOTE | 2017-06-05 07:24 | DIAGNOSTIC IMAGING REPORT ---
CHEST ONE VIEW PORTABLE CLINICAL HISTORY: 67 years-old Female presenting with pneumothorax. TECHNIQUE: Portable upright AP view of the chest was obtained. COMPARISON: 06/04/2017. FINDINGS: Large bore right pleural drain again terminates at the right apex with associated subcutaneous gas along the right lateral chest wall. Atherosclerosis of the aortic arch. Cardiac silhouette normal in size. Suture margin evident at the right apex. Stable slight interval decrease in size of the small right apical pneumothorax. Lungs clear. Osseous structures normal. Upper abdomen normal. IMPRESSION: 1. Stable slight interval decrease in size of the small right apical pneumothorax. 2. Large bore right pleural drain remains in place. 3. Postsurgical changes of the right apex. Electronically signed by: Esteban George M.D. 06/05/2017 7:23 AM Dictated Date/Time: 06/05/2017 7:21 AM
[2017-06-05] MEDS ORDERED: HYDR-3419 PO (08:30)
[2017-06-05] MEDS ORDERED: IBUP-1050 PO (08:30)
[2017-06-05] MEDS ORDERED: ACET325T96 PO (08:30)
[2017-06-05] MEDS ORDERED: CLC100 PO (08:30)
--- NOTE | 2017-06-05 08:33 | Discharge Instructions ---
Discharge Instructions Date of Service Jun 05, 2017. Admission Reason for Admission: Pneumothorax Discharge Discharge Diagnosis / Problem: Pneumothorax Discharge Goals Goal(s): Decrease discomfort, Improve function Activity Recommendations Activity Limitations: as noted below Lifting Limitations: none 1. Do not drive until cleared to do so by Dr. Barrow. 2. Do not drive if taking vicodin. 3. You may remove dressings in 3 days and shower thereafter. No tub baths. 4. Do not take tylenol if using vicodin. Instructions / Follow-Up Instructions / Follow-Up 1. Office appointment with Dr. Barrow in 1 week. Office will call with date and time of appointment. Go to hospital 1 hour before appointment to have a chest x-ray taken. Current Hospital Diet Patient's current hospital diet: Regular Diet Discharge Diet Recommended Diet: Regular Diet Procedures Procedures Performed: Right Video-Assisted Thoracoscopy with Right Bleb Stapling and Partial Pleurectomy Pending Studies Studies pending at discharge: no Medical Emergencies . Who to Call and When: Medical Emergencies: If at any time you feel your situation is an emergency, please call 911 immediately. . Non-Emergent Contact Non-Emergency issues call your: Surgeon Call Non-Emergent contact if: you have a fever, your pain is not controlled, wound has increased drainage . "Provider Documentation" section prepared by Wisam Solo. . VTE Core Measure Inpt VTE Proph given/why not?: Enoxaparin (Lovenox)SQ
--- NOTE | 2017-06-05 08:48 | DIAGNOSTIC IMAGING REPORT ---
CHEST ONE VIEW PORTABLE CLINICAL HISTORY: 67 years-old Female presenting with tube removal . TECHNIQUE: Portable upright AP view of the chest was obtained. COMPARISON: 06/05/2017 at 6:39 AM. FINDINGS: Interval removal of the large bore right pleural drain. Postsurgical changes of the right apex. Atherosclerosis of aortic arch and mild tortuosity of the descending thoracic aorta. Chronic silhouette normal in size. No focal infiltrate. Trace right apical pneumothorax may still be present. No large pleural effusion. Subcutaneous emphysema along the right lateral chest wall related to recent drain. Osseous structures normal. Upper abdomen normal. IMPRESSION: 1. Interval removal of large bore right pleural drain. 2. Trace right apical pneumothorax may still be present. 3. Postsurgical changes of the right lung. Electronically signed by: Esteban George M.D. 06/05/2017 8:47 AM Dictated Date/Time: 06/05/2017 8:45 AM
[2017-06-05] MEDS: PROPRANOLOL HCL 10 MG TAB PO SCH (09:00)
[2017-06-05] MEDS: DOCUSATE SODIUM 100 MG CAP PO SCH (09:10)
[2017-06-05] MEDS: BuPROPion SR 100 MG TABCR PO SCH (09:11)
[2017-06-05] MEDS: CLORAZEPATE DIPOTASSIUM 3.75 MG TAB PO SCH ×2 (09:11→13:42)
[2017-06-05] MEDS: SERTRALINE HCL 100 MG TAB PO SCH (09:12)
[2017-06-05 11:13] VITALS: BP 131/77; PULSE 64; TEMP 36.8; O2SAT 96
--- NOTE | 2017-06-05 11:23 | Discharge Summary ---
Discharge Summary Date of Service Jun 05, 2017. Discharge Summary Admission Date: Jun 02, 2017 at 13:33 Discharge Date: Jun 05, 2017 Discharge Disposition: Home Principal Diagnosis: Right Pneumothorax Immunizations: Have You Had Influenza Vaccine: N/A History of Tetanus Vaccine?: No History of Pneumococcal: Yes History of Hepatitis B Vaccine: Yes Procedures: 1. Right VATS with bleb stapling and limited pleurectomy Consultations: 1. Internal Medicine for management of psychiatric medications Medication Reconciliation New Medications: Acetaminophen Tab (Tylenol) 325 Mg Tab 650 MG PO Q6 PRN for Pain for 30 Days, #240 TAB Hydrocodon/Acetaminophen 5MG/300MG (Vicodin (5MG/300MG)) 1 Tab Tab 1 TAB PO Q4H PRN for Pain, #20 TAB Ibuprofen (Advil) 200 Mg Tab 400 MG PO Q6H PRN for Pain for 30 Days, #240 TAB Docusate Sodium (Docusate Sodium) 100 Mg Cap 100 MG PO BID for 30 Days, #60 CAP 0 Refills Continued Medications: Bupropion (Wellbutrin Sr) 100 Mg Ertab 100 MG PO HS Clorazepate Dipotassium (Tranxene-T) 7.5 Mg Tab 7.5 MG PO TID Estrogens, Conjugated (Premarin) 14 Appln/30 Gm Cr 0 PV UD TID WEEKLY Hydroxyzine Hcl (Atarax) 50 Mg Tab 50 MG PO HS, TAB Propranolol (Inderal) 10 Mg Tab 10 MG PO BID17 Propranolol (Inderal) 10 Mg Tab 20 MG PO HS Sertraline Hcl (Zoloft) 100 Mg Tab 100 MG PO BID Topiramate (Topiramate) 100 Mg Tab 100 MG PO HS Discharge Exam Review of Systems: Constitutional: No fever, No chills Respiratory: No cough, No shortness of breath Cardiovascular: No chest pain Abdomen: No nausea, No vomiting Physical Exam: General Appearance: WD/WN, no apparent distress Respiratory/Chest: no respiratory distress, no accessory muscle use, + decreased breath sounds (at bases) Cardiovascular: regular rate, rhythm Abdomen / GI: non tender, soft Extremities: no calf tenderness Neurologic/Psychiatric: alert, oriented x 3 Hospital Course 67 year old female with right spontaneous pneumothorax -chest tube placed by ED physician on -review of prior CT scans showed presence of blebs -Right VATS with bleb stapling and limited pleurectomy performed on 06/03/17 -chest tube managed in appropriate fashion and d//c on 06/05/17: -post pull CXR showed only trace apical pneumothorax -pain control measures implemented -ambulation, use of IS, coughing, deep breathing encouraged OTHER -pt. maintained on all home psychiatric medications -lovenox utilized for DVT prevention Total Time Spent: Greater than 30 minutes This includes examination of the patient, discharge planning, medication reconciliation, and communication with other providers. Discharge Instructions Please refer to the electronic Patient Visit Report (Discharge Instructions) for additional information. Follow-Up 1. Dr. Barrow in 1 week with repeat CXR Additional Copies To Cristobal Barrow MD
== END 2017-06-05 14:55 | disposition home or self-care (01) | DRG 164 ==
LOC: C.EDB 11:16 → C.MSN 13:33 → ENRESERV 15:10
PROVIDERS: ADMIT Surgery; ATTEND Surgery
PROC: 0W9930Z Drainage of Right Pleural Cavity with Drainage Device, Percutaneous Approach (ICD-10-PCS; principal; 2017-06-02)
PROC: 0BBC4ZZ Excision of Right Upper Lung Lobe, Percutaneous Endoscopic Approach (ICD-10-PCS; 2017-06-03)
PROC: 0BBN4ZZ Excision of Right Pleura, Percutaneous Endoscopic Approach (ICD-10-PCS; 2017-06-03)
PROC: 0W9940Z Drainage of Right Pleural Cavity with Drainage Device, Percutaneous Endoscopic Approach (ICD-10-PCS; 2017-06-03)
DX: J93.83 Other pneumothorax (principal); N17.9 Acute kidney failure, unspecified; E87.6 Hypokalemia; J43.9 Emphysema, unspecified; I10 Essential (primary) hypertension; F41.9 Anxiety disorder, unspecified; F31.9 Bipolar disorder, unspecified; Z87.891 Personal history of nicotine dependence; Z79.890 Hormone replacement therapy; Z79.899 Other long term (current) drug therapy

== ENCOUNTER → 2017-06-13 | Outpatient (CLI) | payer OTHER ==
[~2017-06-13] MED LIST changes: +ACET-1693 PO; -ADVIN25050 INH; -ALBUAER INH; -ATOR-14 PO; +BUPR100T8 PO; +CLC100 PO; -CLON1TAB3 PO; +CLOR7.5T14 PO; -FLUT50SP14 NAE; -FRRS300 PO; +HYDR-3126 PO; +HYDR-3419 PO; +IBUP-1050 PO; -LCTX PO; -OMEP40CA36 PO; -OXYC-57 PO; +PRMVC PV; +PROP10TA7 PO; -RIVA1TAB PO; +TPM100 PO
--- NOTE | 2017-06-13 10:41 | DIAGNOSTIC IMAGING REPORT ---
CHEST 2 VIEWS ROUTINE CLINICAL HISTORY: 67 years-old Female presenting with J93.9 [id number]. TECHNIQUE: PA and lateral views of the chest were obtained. COMPARISON: 06/05/2017. FINDINGS: Atherosclerosis of the aortic arch. Cardiac silhouette normal in size. Postsurgical changes of the right apex with a suture margin noted. Trace residual right apical pneumothorax. This has decreased in size since the prior exam. No focal opacity. No pleural effusion. Osseous structures normal. Upper abdomen normal. IMPRESSION: 1. Continued decrease size of the now trace right apical pneumothorax. 2. Post surgical changes of the right apex. Electronically signed by: Esteban George M.D. 06/13/2017 10:40 AM Dictated Date/Time: 06/13/2017 10:39 AM
== END | disposition home or self-care (01) ==
LOC: C.RAD1850 10:30
PROVIDERS: ATTEND Surgery
DX: J93.9 Pneumothorax, unspecified (principal)